=== PATIENT | male | born 1950 | race American Indian/Alaskan Native ===

== ENCOUNTER 2017-02-22 09:23 | Emergency (ER) | payer SELFPAY ==
--- NOTE | 2017-02-22 12:13 | Emergency Department Report ---
HPI - General Chief Complaint: Upper Respiratory Infection Time Seen by Provider: 02/22/17 12:13 - HPI HPI: Patient reports nonproductive cough for 3-4 days. He states that he started about 2 weeks ago when he started having nasal congestion and sinus pressure. He said he is now coughing and has headache at 8-10 frontally. Denies nausea or vomiting. Denies any dizziness. Denies any fever or chills. Denies any shortness of breath or chest pain. 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 went in and patched it up." - Family History Family history: hypertension (Single) - Social History Smoking Status: Never Smoker Substance Use Type: Alcohol (occasional) - Medications Home Medications: Home Medications Medication Instructions Recorded Confirmed Last Taken Type Indomethacin 50 mg PO Q8H #60 capsule 05/24/13 09/06/13 Unknown Rx predniSONE [Deltasone] 50 mg PO QDAY #3 tab 05/24/13 09/06/13 Unknown Rx Amoxicillin [Amoxicillin TAB] 875 mg PO TID 7 Days 09/06/13 Unknown Rx Dextromethorphan Polistirex 5 ml PO BID PRN 10 Days 09/06/13 Unknown Rx [Delsym] HYDROcodone/APAP 5-325 [Savage 1 each PO Q8HR PRN #10 tablet 09/06/13 Unknown Rx 5-325 mg TAB] Ciprofloxacin HCl [Ciprofloxacin 500 mg PO BID #28 tablet 02/10/14 Unknown Rx TAB] HYDROcodone/APAP 5-325 [Savage 1 - 2 each PO Q4-6H PRN #20 tablet 02/10/14 Unknown Rx 5/325] Ibuprofen [Motrin 800 MG tab] 800 mg PO Q8H PRN #20 tablet 02/10/14 Unknown Rx Amoxicillin/K Clav Tab [Augmentin 1 tab PO Q12HR #20 tab 02/22/17 Unknown Rx 875 mg] Cetirizine HCl [ZyrTEC] 10 mg PO QDAY #14 capsule 02/22/17 Unknown Rx Fluticasone [Flonase] 1 spray NS QDAY #1 bottle 02/22/17 Unknown Rx guaiFENesin/CODEINE [Robitussin AC] 10 ml PO Q12H PRN #100 oral.liqd 02/22/17 Unknown Rx ED Review of Systems ROS: Stated complaint: COUGH/HEADACHE Other details as noted in HPI Comment: All other systems reviewed and negative Constitutional: no symptoms reported ENT: congestion, other (sinus pain and PND). denies: ear pain, throat pain Respiratory: cough. denies: orthopnea, shortness of breath, SOB with exertion, SOB at rest, stridor, wheezing Cardiovascular: denies: chest pain, palpitations, dyspnea on exertion, edema, syncope Gastrointestinal: denies: abdominal pain, nausea, vomiting, diarrhea, constipation Musculoskeletal: denies: back pain, joint swelling, arthralgia, myalgia Skin: denies: rash Neurological: headache. denies: weakness, numbness, paresthesias, confusion, abnormal gait, vertigo Physical Exam - Physical Exam Vital Signs: Vital Signs 02/22/17 09:32 Temperature 97.7 F Pulse Rate 71 Respiratory 16 Rate Blood Pressure 154/84 O2 Sat by Pulse 100 Oximetry General: This is a 66-year-old male well-nourished well-developed in no acute distress. Physical Exam: Head: Normocephalic, atraumatic, no abrasion, no bruising and no contusion. Eyes: Biateral pupils equal and reactive to light, bilateral EOM intact.. Bilateral conjunctival and sclera without injection, normal accommodation. Ears: Bilateral EAC without any redness drainage or swelling, Rajat TM congested without erythema. bilateral tragus is normal and nontender. No auricular abnormality. No Mastoid bones tenderness. Nose: Moist, erythema and congested with clear drainage. Frontal sinus TTP Mouth: No pharyngeal exudate or erythema. Uvula is midline and oral airways patent. Moist and tongue is normal. Neck: Supple, Negative Cervical adenopathy, full range of motion and no C-spine tenderness. No swelling or tracheal deviation Cardiovascular: S1, S2. Regular rate and rhythm. No murmur. Capillary refill is less then 3 seconds. Lungs: Clear to auscultate bilaterally. No rhonchi, wheezes or rales. No chest wall tenderness. Dry cough MSK: Strength 5/5 in all extremities. No joint deformity or crepitus. Normal inspection. Full range of motion to all extremities Extremities: No clubbing, cyanosis or edema. +2 pulses. No neurovascular compromise Skin: Clean, dry and intact. No rash or lesions. Psych: Normal mood and behavior. ED Course Vital Signs 02/22/17 09:32 Temperature 97.7 F Pulse Rate 71 Respiratory 16 Rate Blood Pressure 154/84 O2 Sat by Pulse 100 Oximetry - Reevaluation(s) Reevaluation #1: 02/22/17 14:30 Patient stable throughout ED stay ED Medical Decision Making - Medical Decision Making ED course: Assessment/plan Patient here report that he's been having in cough and and headaches for 3-4 days but prior to that he was having nasal congestion. Denies any fever or chills. Patient had elevated at 10. Patient is neurologically intact. Physical findings for acute bacterial sinusitis, headache and cough. Diagnosis and treatment plan explained to patient he voiced understanding. Patient does not have access to primary care sore for him to [facility]. She discharged home in stable condition with prescription for Augmentin, Flonase and Zyrtec. Critical care attestation.: If time is entered above; I have spent that time in minutes in the direct care of this critically ill patient, excluding procedure time. ED Disposition Clinical Impression: Cough, Acute bacterial rhinosinusitis Acute headache Qualifiers: Headache type: unspecified Intractability: not intractable Qualified Code(s): R51 - Headache Disposition: DC-01 TO HOME OR SELFCARE Is pt being admited?: No Does the pt Need Aspirin: No Condition: Stable Instructions: Acute Bacterial Rhinosinusitis (ED), Acute Cough (ED), Acute Headache (ED) Additional Instructions: Please increase her fluid intake Flush nostrils with saline nasal spray take antibiotic as prescribed F/U with primary care physician as instructed Please do not drive or operate heavy machinery while taking in codeine cough syrup as this medication will cause drowsiness. Prescriptions: Amoxicillin/K Clav Tab [Augmentin 875 mg] 1 tab PO Q12HR #20 tab Cetirizine HCl [ZyrTEC] 10 mg PO QDAY #14 capsule Fluticasone [Flonase] 1 spray NS QDAY #1 bottle guaiFENesin/CODEINE [Robitussin AC] 10 ml PO Q12H PRN #100 oral.liqd PRN Reason: Cough Referrals: PRIMARY CARE, [Primary Care Provider] - 3-[address] [facility] [Outside] - 3-5 Days Forms: Work/School Release Form(ED)
[2017-02-22] MEDS ORDERED: MOTRIN PO ONE (13:28)
[2017-02-22] MEDS ORDERED: XYLOCAINE 1% MPF 5 mL INFILTRATI ONE (13:28)
[2017-02-22] MEDS ORDERED: ROCEPHIN IM STA (13:28)
[2017-02-22 17:53] VITALS: BP 144/80
== END 2017-02-22 14:50 | disposition home or self-care (01) ==
LOC: ED 09:23
DX: J01.90 Acute sinusitis, unspecified (principal); R51 Headache; R05 Cough; M19.90 Unspecified osteoarthritis, unspecified site
CPT/HCPCS: 96372; 99282; J0696

== ENCOUNTER 2017-10-22 08:11 | Emergency (ER) | payer MEDICARE ==
--- NOTE | 2017-10-22 09:53 | XRay Report ---
Right knee 3 views: History: Right knee pain and swelling. Findings: No bony or articular per minute. No fracture dislocation or soft tissue calcification. Impression: Essentially negative right knee.
--- NOTE | 2017-10-22 12:00 | Emergency Department Report ---
HPI - General Chief Complaint: Extremity Injury, Lower Time Seen by Provider: 10/22/17 11:43 - HPI HPI: Pt is a 67-year-old male with no prior medical history who presents to ED complaining of right knee pain and swelling for the past 4 days. Patient states he noticed swelling starting about 4 days ago and thought this would go down but swelling has not. Patient states right knee throbbing, intermittent, worse with movement type out of 10 intensity pain. He denies fall injury or trauma to the knee. 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 went in and patched it up." - Social History Smoking Status: Never Smoker Substance Use Type: Non Opiate Pain - Medications Home Medications: Home Medications Medication Instructions Recorded Confirmed Last Taken Type predniSONE [Deltasone] 50 mg PO QDAY #3 tab 05/24/13 09/06/13 Unknown Rx Amoxicillin [Amoxicillin TAB] 875 mg PO TID 7 Days tablet 09/06/13 Unknown Rx Dextromethorphan Polistirex 5 ml PO BID PRN 10 Days ml 09/06/13 Unknown Rx [Delsym] HYDROcodone/APAP 5-325 [Gibson 1 each PO Q8HR PRN #10 tablet 09/06/13 Unknown Rx 5-325 mg TAB] Ciprofloxacin HCl [Ciprofloxacin 500 mg PO BID #28 tablet 02/10/14 Unknown Rx TAB] HYDROcodone/APAP 5-325 [Gibson 1 - 2 each PO Q4-6H PRN #20 tablet 02/10/14 Unknown Rx 5/325] Ibuprofen [Motrin 800 MG tab] 800 mg PO Q8H PRN #20 tablet 02/10/14 Unknown Rx Amoxicillin/K Clav Tab [Augmentin 1 tab PO Q12HR #20 tab 02/22/17 Unknown Rx 875 mg] Cetirizine HCl [ZyrTEC] 10 mg PO QDAY #14 capsule 02/22/17 Unknown Rx Fluticasone [Flonase] 1 spray NS QDAY #1 bottle 02/22/17 Unknown Rx guaiFENesin/CODEINE [Robitussin AC] 10 ml PO Q12H PRN #100 oral.liqd 02/22/17 Unknown Rx Indomethacin 50 mg PO Q8H #20 capsule 10/22/17 Unknown Rx amLODIPine [Norvasc] 5 mg PO DAILY #20 tab 10/22/17 Unknown Rx ED Review of Systems ROS: Stated complaint: RIGHT KNEE Other details as noted in HPI Constitutional: denies: chills, fever Eyes: denies: eye pain, eye discharge, vision change ENT: denies: ear pain, throat pain Respiratory: denies: cough, shortness of breath, wheezing Cardiovascular: denies: chest pain, palpitations Endocrine: no symptoms reported Gastrointestinal: denies: abdominal pain, nausea, diarrhea Genitourinary: denies: urgency, dysuria Musculoskeletal: denies: back pain, joint swelling, arthralgia Skin: denies: rash, lesions Neurological: denies: headache, weakness, paresthesias Psychiatric: denies: anxiety, depression Hematological/Lymphatic: denies: easy bleeding, easy bruising Physical Exam - Physical Exam Vital Signs: Vital Signs 10/22/17 08:36 Temperature 98.5 F Pulse Rate 57 L Respiratory 18 Rate Blood Pressure 160/72 O2 Sat by Pulse 96 Oximetry Physical Exam: GENERAL: Alert and oriented x3, no apparent distress, Normal Gait, atraumatic. HEAD: Head is normocephalic and a-traumatic. NECK: Supple. Non edematous, No lymphadenopathy or thyromegaly. No C-spine tenderness, full range of motion LUNGS: Symetrical with respiration, No wheezing, no rales or crackles, CTAB. HEART: S1, S2 present, regular rate and rhythm without murmur, no rubs, no gallops. Non tender to palpation BACK: Full range of motion, no spinal tenderness, Tenderness to palpation of the trapezius muscles and latissimus dorsi muscles of the back EXTREMITIES/MUSCULOSKELETAL: No cyanosis, clubbing, rash, lesions or edema. Full ROM bilaterally. UE/LE Pulses 2+ bilaterally. LE and UE 5+ strength bilaterally, knee moderately swollen, nonpitting, mildly tender to palpation anteriorly, warm, normal tone, she unable to flex and extend knee. NEUROLOGIC: The patient is cooperative with no focal neurologic deficits. SKIN: Warm and dry, No lesions, No ulceration or induration present. ED Course Vital Signs 10/22/17 08:36 Temperature 98.5 F Pulse Rate 57 L Respiratory 18 Rate Blood Pressure 160/72 O2 Sat by Pulse 96 Oximetry ED Medical Decision Making - Radiology Data Radiology results: report reviewed, image reviewed Ordering Physician: ADDIS COONEY MD Date of Service: 10/22/17 Procedure(s): XR knee 3V RT Accession Number(s): [id number] cc: ADDIS COONEY MD Fluoro Time In Minutes: Right knee 3 views: History: Right knee pain and swelling. Findings: No bony or articular per minute. No fracture dislocation or soft tissue calcification. Impression: Essentially negative right knee. Transcribed By: PTP Dictated By: ROSA ACE MD Electronically Authenticated By: ROSA ACE MD Signed Date/Time: 10/22/17 1308 - Medical Decision Making 67-year-old male presents to ED with right knee arthritis pain ED course: Patient received naproxen in ED. Vital signs are normal patient is in no acute distress. Discussed Leonardo wrap of the knee, and ice compressions 3 times a day. Discussed elevation and proper rest of the knee. Discussed with patient follow-up with primary care physician. Discussed the patient and take medications as prescribed. Patient has no neurological deficit. Patient is alert and oriented 3 and understands all instructions given. Discussed drowsiness effect of Flexeril makes her drowsy and not to operate machinery while taking flexeril. Prior to discharge patient's blood pressure reading was elevated. I discussed the patient and he is to be managed by primary care physician which I give him a referral for. I gave patient had a week's worth of blood pressure medicine to keep blood pressure control. I discussed the patient since he has no history of hypertension to follow up her primary care to be managed. He denied any symptoms such as chest pain, headaches, blurry vision, shortness of breath. Critical care attestation.: If time is entered above; I have spent that time in minutes in the direct care of this critically ill patient, excluding procedure time. ED Disposition Clinical Impression: Arthritis of knee, right Right knee pain Qualifiers: Chronicity: chronic Qualified Code(s): M25.561 - Pain in right knee Disposition: DC-01 TO HOME OR SELFCARE Is pt being admited?: No Does the pt Need Aspirin: No Condition: Stable Instructions: Knee Pain (ED), Arthralgia (ED), Knee Exercises (GEN) Additional Instructions: Make sure to follow up with the primary care physician as discussed. Take all your medications as you've been prescribed. If you have any worsening symptoms or develop new symptoms please return to ED immediately. Prescriptions: amLODIPine [Norvasc] 5 mg PO DAILY #20 tab Indomethacin 50 mg PO Q8H #20 capsule Referrals: PRIMARY CARE, [Primary Care Provider] - 3-5 Days ROGELIO LEONARDO MD [Staff Physician] - 3-5 Days EL STEWART MD [Referring] - 3-5 Days [facility] [Outside] - 3-5 Days [facility] [Outside] - 3-5 Days [facility] [Outside] - 3-5 Days Forms: Work/School Release Form(ED) Time of Disposition: 12:06
[2017-10-22 12:38] VITALS: BP 207/104
[2017-10-22] MEDS ORDERED: NAPROSYN PO ONE (13:00)
== END 2017-10-22 12:49 | disposition home or self-care (01) ==
LOC: ED 08:11
DX: M25.561 Pain in right knee (principal); M17.11 Unilateral primary osteoarthritis, right knee
CPT/HCPCS: 99283

== ENCOUNTER 2018-03-10 15:55 | Emergency (ER) | payer MEDICARE ==
[2018-03-10 16:24] VITALS: BP 133/80
--- NOTE | 2018-03-10 18:06 | XRay Report ---
FINAL REPORT PROCEDURE: XR CHEST ROUTINE 2V TECHNIQUE: PA and lateral chest radiographs were obtained. CPT 95576 HISTORY: COUGH COMPARISON: No prior studies are available for comparison. FINDINGS: Heart: Normal. Mediastinum/Vessels: Normal. Lungs/Pleural space: No infiltrate, effusion, or pneumothorax. Bony thorax: No acute osseous abnormality. Other: IMPRESSION: No pulmonary infiltrates are identified.
[2018-03-10] MEDS ORDERED: TRIMOX PO ONE (18:40)
[2018-03-10] MEDS ORDERED: DELTASONE PO ONE (18:40)
[2018-03-10] MEDS ORDERED: TESSALON PERLES PO ONE (18:41)
--- NOTE | 2018-03-10 18:45 | Emergency Department Report ---
Minor Respiratory - HPI Chief Complaint: Upper Respiratory Infection Stated Complaint: COUGH Time Seen by Provider: 03/10/18 18:38 Duration: 5 Days Pain Location: Facial, Throat, Chest Severity: mild Minor Respiratory: Yes Sore Throat, Yes Able to Tolerate Fluids, Yes Cough, No Rhinorrhea, No Ear Pain, No Sick Contacts, No Hemoptysis, No Chest Pain, No Shortness of Breath, No Fever ED Review of Systems ROS: Stated complaint: COUGH Other details as noted in HPI Comment: Unobtainable due to pts medical conditions Constitutional: denies: chills Eyes: denies: eye pain ENT: throat pain. denies: ear pain Respiratory: cough. denies: orthopnea Cardiovascular: denies: chest pain, palpitations, dyspnea on exertion Endocrine: denies: excessive sweating, flushing, intolerance to cold Gastrointestinal: denies: abdominal pain, nausea Genitourinary: denies: urgency, dysuria Musculoskeletal: denies: back pain Skin: denies: rash, lesions Neurological: denies: headache, weakness Psychiatric: denies: anxiety, depression Hematological/Lymphatic: denies: easy bleeding ED Past Medical Hx - Past Medical History Hx Arthritis: Yes Additional medical history: GOUT - Surgical History Past Surgical History?: Yes Additional Surgical History: kidney surgery " 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 went in and patched it up." - Family History Family history: no significant - Social History Smoking Status: Never Smoker Substance Use Type: None - Medications Home Medications: Home Medications Medication Instructions Recorded Confirmed Last Taken Type Amoxicillin [Trimox CAP] 500 mg PO BID #20 capsule 03/10/18 Unknown Rx Benzonatate [Tessalon Perles] 100 mg PO Q8HR PRN #20 capsule 03/10/18 Unknown Rx Fluticasone [Flonase] 1 spray NS QDAY #1 bottle 03/10/18 Unknown Rx predniSONE [Deltasone] 50 mg PO QDAY #5 tab 03/10/18 Unknown Rx Minor Respiratory Exam - Exam General: Vital signs noted. No distress. Alert and acting appropriately. HEENT: Yes Pharyngeal Erythema, Yes Moist Mucous Membranes, Yes Frontal Tenderness, Yes Maxillary Tenderness, No Pharyngeal Exudates, No Rhinorrhea, No Conjuctival Injection Ear: Neither TM Bulge, Neither TM Erythema, Neither EAC Pain, Neither EAC Discharge Neck: Yes Supple, No Adenopathy Lungs: Yes Good Air Exchange, Yes Cough, No Wheezes, No Ronchi, No Stridor, No Labored Respirations, No Retractions, No Use of Accessory Muscles Heart: Yes Regular, No Murmur Abdomen: Yes Normal Bowel Sounds, No Tenderness, No Peritoneal Signs Skin: No Rash, No Edema Neurologic: Alert and oriented, no deficits. Musculoskeletal: Unremarkable. ED Course Vital Signs 03/10/18 16:21 Temperature 98.7 F Pulse Rate 78 Respiratory 20 Rate Blood Pressure 133/80 O2 Sat by Pulse 97 Oximetry ED Medical Decision Making - Radiology Data Radiology results: report reviewed, image reviewed - Medical Decision Making NO FEVER 1 MONTH HX TICKLE IN THROAT POS SINUS PRESSURE MAX AND FACIAL POST NASAL DRIP NON TOXIC TAKING PO AMBULATORY - Differential Diagnosis URTI Critical care attestation.: If time is entered above; I have spent that time in minutes in the direct care of this critically ill patient, excluding procedure time. ED Disposition Clinical Impression: Sinusitis, Cough Disposition: DC-01 TO HOME OR SELFCARE Is pt being admited?: No Does the pt Need Aspirin: No Condition: Stable Instructions: Sinusitis (ED) Additional Instructions: HYDRATE DIET TOLERATED MEDS ORDERED UNTIL GONE FOLLOW UP WITH PCP IF PERSISTS XRAY NORMAL THIS EVENING Referrals: PRIMARY MD CARLOZ [Primary Care Provider] - 3-5 Days JUDE GRANT MD [Staff Physician] - 3-5 Days Time of Disposition: 18:42
== END 2018-03-10 18:56 | disposition home or self-care (01) ==
LOC: ED 15:55
DX: J32.9 Chronic sinusitis, unspecified (principal); M19.90 Unspecified osteoarthritis, unspecified site
CPT/HCPCS: 71046; 99283; J7512

== ENCOUNTER 2019-03-15 11:47 | Emergency (ER) | payer MEDICARE ==
--- NOTE | 2019-03-15 12:10 | Emergency Department Report ---
Blank Doc - Documentation Documentation: 68-year-old male that presents with left great toe pain and swelling with hx of Gout. This initial assessment/diagnostic orders/clinical plan/treatment(s) is/are subject to change based on patient's health status, clinical progression and re- assessment by fellow clinical providers in the ED. Further treatment and workup at subsequent clinical providers discretion. Patient/guardians urged not to elope from the ED as their condition may be serious if not clinically assessed and managed. Initial orders include: 1- Patient sent to [facility] for further evaluation and treatment
[2019-03-15 12:15] VITALS: BP 157/91
[2019-03-15] MEDS ORDERED: HYDROcodone/ACETAMINOPHEN 5-325 MG TAB PO ONE (13:18)
[2019-03-15] MEDS ORDERED: IBUPROFEN 800 MG TAB PO ONE (13:18)
--- NOTE | 2019-03-15 13:18 | Emergency Department Report ---
ED Lower Extremity HPI - General Chief Complaint: Extremity Injury, Lower Stated Complaint: FOOT SWOLLEN/PAIN Time Seen by Provider: 03/15/19 12:09 Source: patient Mode of arrival: Ambulatory Limitations: No Limitations - History of Present Illness Initial Comments: Mr. Campos is a very pleasant 68-year-old male with history of gout who has pain at the left big toe. No recent trauma. + swelling. Recurrent symptoms in the area of gout episodes. Mild pain. MD Complaint: other (left big toe pain) -: Gradual, days(s) (2) Injury: Foot: Left Severity: mild, moderate Severity scale (0 -10): 6 Worsens With: weight bearing Context: other (history of gout) Associated Symptoms: swelling - Related Data Previous Rx's Medication Instructions Recorded Last Taken Type Amoxicillin [Trimox CAP] 500 mg PO BID #20 capsule 03/10/18 Unknown Rx Benzonatate [Tessalon Perles] 100 mg PO Q8HR PRN #20 capsule 03/10/18 Unknown Rx Fluticasone [Flonase] 1 spray NS QDAY #1 bottle 03/10/18 Unknown Rx predniSONE [Deltasone] 50 mg PO QDAY #5 tab 03/10/18 Unknown Rx Colchicine 0.6 mg PO Q3H #3 capsule 03/15/19 Unknown Rx HYDROcodone/APAP 5-325 [Harrells 1 each PO Q6HR PRN #10 tablet 03/15/19 Unknown Rx 5/325] Prednisone [predniSONE 10 mg 10 mg PO .TAPER #1 tab.ds.pk 03/15/19 Unknown Rx (6-Day Pack, 21 Tabs)] Allergies Allergy/AdvReac Type Severity Reaction Status Date / Time No Known Allergies Allergy Unverified 05/24/13 13:53 ED Review of Systems ROS: Stated complaint: FOOT SWOLLEN/PAIN Other details as noted in HPI Constitutional: denies: fever, malaise Respiratory: denies: shortness of breath Cardiovascular: denies: chest pain Gastrointestinal: denies: abdominal pain, nausea, vomiting Musculoskeletal: joint swelling, arthralgia Skin: denies: rash, lesions ED Past Medical Hx - Past Medical History Previous Medical History?: Yes Hx Arthritis: Yes Additional medical history: GOUT - Surgical History Past Surgical History?: Yes Additional Surgical History: kidney surgery " 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 went in and patched it up." - Social History Smoking Status: Never Smoker Substance Use Type: None - Medications Home Medications: Home Medications Medication Instructions Recorded Confirmed Last Taken Type Amoxicillin [Trimox CAP] 500 mg PO BID #20 capsule 03/10/18 Unknown Rx Benzonatate [Tessalon Perles] 100 mg PO Q8HR PRN #20 capsule 03/10/18 Unknown Rx Fluticasone [Flonase] 1 spray NS QDAY #1 bottle 03/10/18 Unknown Rx predniSONE [Deltasone] 50 mg PO QDAY #5 tab 03/10/18 Unknown Rx Colchicine 0.6 mg PO Q3H #3 capsule 03/15/19 Unknown Rx HYDROcodone/APAP 5-325 [Harrells 1 each PO Q6HR PRN #10 tablet 03/15/19 Unknown Rx 5/325] Prednisone [predniSONE 10 mg 10 mg PO .TAPER #1 tab.ds.pk 03/15/19 Unknown Rx (6-Day Pack, 21 Tabs)] ED Physical Exam - General Limitations: No Limitations General appearance: alert, in no apparent distress - Head Head exam: Present: atraumatic, normocephalic - Eye Eye exam: Present: normal appearance - Respiratory Respiratory exam: Absent: respiratory distress - Extremities Exam Extremities exam: Present: other (left MTP: Redness swelling tenderness foot and ankle exam normal otherwise) ED Course Vital Signs 03/15/19 11:54 Temperature 97.8 F Pulse Rate 83 Respiratory 17 Rate Blood Pressure 157/91 O2 Sat by Pulse 96 Oximetry ED Lower Extremity MDM - Medical Decision Making 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 ED Disposition Clinical Impression: Gout attack, Gout of left foot Disposition: DC-01 TO HOME OR SELFCARE Is pt being admited?: No Does the pt Need Aspirin: No Condition: Stable Instructions: Acute Gouty Arthritis (ED) Prescriptions: Colchicine 0.6 mg PO Q3H #3 capsule HYDROcodone/APAP 5-325 [Harrells 5/325] 1 each PO Q6HR PRN #10 tablet PRN Reason: Pain Prednisone [predniSONE 10 mg (6-Day Pack, 21 Tabs)] 10 mg PO .TAPER #1 tab.ds.pk Referrals: GRACIELA OCHOA MD [Staff Physician] - 3-5 Days Forms: Work/School Release Form(ED)
== END 2019-03-15 13:57 | disposition home or self-care (01) ==
LOC: ED 11:47
DX: M10.072 Idiopathic gout, left ankle and foot (principal); M19.90 Unspecified osteoarthritis, unspecified site; Z98.890 Other specified postprocedural states; Z79.899 Other long term (current) drug therapy
CPT/HCPCS: 99282

== ENCOUNTER 2020-01-04 13:13 | Emergency (ER) | payer MEDICARE ==
[2020-01-04 13:47] VITALS: BP 152/80
--- NOTE | 2020-01-04 17:00 | Emergency Department Report ---
ED Back Pain/Injury HPI - General Chief Complaint: Back Pain/Injury Stated Complaint: BACK PAIN Time Seen by Provider: 01/04/20 16:01 Source: patient Limitations: No Limitations - History of Present Illness Initial Comments: 69-year-old -[place] male presents to the emergency room for 2-day history of back pain. Patient states that he only recalled climbing up a ladder . Patient denies any falls or injuries. Patient denies any urinary urgency no hematuria. Patient denies any dizziness no urinary incontinence or bowel incontinence. Patient reports he taken Aleve 2 pills yesterday and 2 pills a day before. Not taken any pain medication today. MD Complaint: back pain Onset/Timin -: days(s) Similar Symptoms Previously: No Severity scale (0 -10): 10 Quality: stabbing Consistency: intermittent Improves With: none Worsens With: none Context: unknown Associated Symptoms: denies other symptoms - Related Data Previous Rx's Medication Instructions Recorded Last Taken Type Amoxicillin [Trimox CAP] 500 mg PO BID #20 capsule 03/10/18 Unknown Rx Benzonatate [Tessalon Perles] 100 mg PO Q8HR PRN #20 capsule 03/10/18 Unknown Rx Fluticasone [Flonase] 1 spray NS QDAY #1 bottle 03/10/18 Unknown Rx predniSONE [Deltasone] 50 mg PO QDAY #5 tab 03/10/18 Unknown Rx Colchicine 0.6 mg PO Q3H #3 capsule 03/15/19 Unknown Rx HYDROcodone/APAP 5-325 [[place] 1 each PO Q6HR PRN #10 tablet 03/15/19 Unknown Rx 5/325] Prednisone [predniSONE 10 mg 10 mg PO .TAPER #1 tab.ds.pk 03/15/19 Unknown Rx (6-Day Pack, 21 Tabs)] Ciprofloxacin HCl [Ciprofloxacin 500 mg PO Q12HR 5 Days #10 tab 01/04/20 Unknown Rx TAB] Allergies Allergy/AdvReac Type Severity Reaction Status Date / Time No Known Allergies Allergy Unverified 05/24/13 13:53 ED Review of Systems ROS: Stated complaint: BACK PAIN Other details as noted in HPI Comment: All other systems reviewed and negative ED Past Medical Hx - Past Medical History Hx Arthritis: Yes Additional medical history: GOUT - Surgical History Additional Surgical History: kidney surgery " 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 went in and patched it up." - Social History Smoking Status: Never Smoker Substance Use Type: None - Medications Home Medications: Home Medications Medication Instructions Recorded Confirmed Last Taken Type Amoxicillin [Trimox CAP] 500 mg PO BID #20 capsule 03/10/18 Unknown Rx Benzonatate [Tessalon Perles] 100 mg PO Q8HR PRN #20 capsule 03/10/18 Unknown Rx Fluticasone [Flonase] 1 spray NS QDAY #1 bottle 03/10/18 Unknown Rx predniSONE [Deltasone] 50 mg PO QDAY #5 tab 03/10/18 Unknown Rx Colchicine 0.6 mg PO Q3H #3 capsule 03/15/19 Unknown Rx HYDROcodone/APAP 5-325 [[place] 1 each PO Q6HR PRN #10 tablet 03/15/19 Unknown Rx 5/325] Prednisone [predniSONE 10 mg 10 mg PO .TAPER #1 tab.ds.pk 03/15/19 Unknown Rx (6-Day Pack, 21 Tabs)] Ciprofloxacin HCl [Ciprofloxacin 500 mg PO Q12HR 5 Days #10 tab 01/04/20 Unknown Rx TAB] ED Physical Exam - General Limitations: No Limitations General appearance: alert, in no apparent distress - Head Head exam: Present: atraumatic, normocephalic - Eye Eye exam: Present: normal appearance - ENT ENT exam: Present: mucous membranes moist - Back Exam Back exam: Present: full ROM, muscle spasm. Absent: tenderness, paraspinal tenderness, vertebral tenderness - Expanded Back Exam Expanded Back exam: Sciatic Notch Tenderness: Right, Positive Straight Leg Raise: Left, Negative Straight Leg Raising: Left - Neurological Exam Neurological exam: Present: alert, oriented X3, normal gait - Psychiatric Psychiatric exam: Present: normal affect, normal mood - Skin Skin exam: Present: warm, dry, intact, normal color. Absent: rash ED Course Vital Signs 01/04/20 13:43 Temperature 98.3 F Pulse Rate 64 Respiratory 18 Rate Blood Pressure 152/80 [Right] O2 Sat by Pulse 98 Oximetry ED Medical Decision Making - Lab Data Laboratory Tests 01/04/20 Unknown Urine Color Yellow Urine Turbidity Cloudy Urine pH 8.0 H Ur Specific [place] 1.014 Urine Protein <15 mg/dl Urine Glucose (UA) Neg Urine Ketones Neg Urine Blood Neg Urine Nitrite Pos Urine Bilirubin Neg Urine Urobilinogen < 2.0 Ur Leukocyte Esterase Mod Urine WBC (Auto) 27.0 H Urine RBC (Auto) 1.0 U Epithel Cells (Auto) 1.0 Urine Bacteria (Auto) 1+ Urine Mucus Few Urine Yeast (Budding) 1+ - Medical Decision Making 69-year-old -[place] male presents to the emergency room for 2-day history of back pain. Patient states that he only recalled climbing up a ladder. Patient denies any falls or injuries. Patient denies any urinary urgency no hematuria. Patient denies any dizziness no urinary incontinence or bowel incontinence. Patient reports he taken Aleve 2 pills yesterday and 2 pills a day before. Not taken any pain medication today. UA sent out. Most likely muscle strain. Does not have any vertebral tenderness full range of motion. Critical care attestation.: If time is entered above; I have spent that time in minutes in the direct care of this critically ill patient, excluding procedure time. ED Disposition Clinical Impression: UTI (urinary tract infection) Qualifiers: Urinary tract infection type: site unspecified Hematuria presence: without hematuria Qualified Code(s): N39.0 - Urinary tract infection, site not specified Disposition: DC- TO HOME OR SELFCARE Is pt being admited?: No Does the pt Need Aspirin: No Condition: Stable Instructions: Urinary Tract Infection in Men (ED) Additional Instructions: Please complete your antibiotics as prescribed. Tylenol for pain as needed. Follow-up with a urologist. Prescriptions: Ciprofloxacin HCl [Ciprofloxacin TAB] 500 mg PO Q12HR 5 Days #10 tab Referrals: JOSE CARTY MD [Primary Care Provider] - 3-5 Days RONALD BELLA MD [Staff Physician] - 3-5 Days
[2020-01-04 17:13] LABS: Bacteria,Urine 1+ /HPF (Negative); Bilirubin,Urine NEG (Negative); Blood,Urine NEG (Negative); Color,Urine Yellow (Yellow); Mucus,Urine FEW /HPF; Protein,Urine <15 mg/dL mg/dL (Negative); Urobilinogen,Urine < 2.0 mg/dL (<2.0)
== END 2020-01-04 17:53 | disposition home or self-care (01) ==
LOC: ED 13:13
DX: N39.0 Urinary tract infection, site not specified (principal); M19.90 Unspecified osteoarthritis, unspecified site; Z98.890 Other specified postprocedural states; Z79.2 Long term (current) use of antibiotics; Z79.899 Other long term (current) drug therapy
CPT/HCPCS: 81001; 87086; 99283

== ENCOUNTER 2020-09-08 13:48 | Emergency (ER) | payer MEDICARE ==
--- NOTE | 2020-09-08 15:39 | Event Note ---
ED Screening Note Date of service: 09/08/20 Time: 15:38 ED Screening Note: 70-year-old male patient with history of pyelonephritis and nephrolithiasis presents to emergency department with complaints of nontraumatic right lower back/right flank pain starting 2 days ago. Patient states pain is reminiscent of prior kidney infection. States he was treated as an outpatient for pyelonephritis less than 1 year ago. He has never required lithotripsy for his kidney stones. Pain is typically on the right side. No fever, nausea, or vomiting. General: Awake, appropriately interactive, no acute distress. Neck: Supple. Full range of motion intact. Cardiovascular: Normal peripheral perfusion. Pulmonary: No respiratory distress. Patient is speaking normally without use of accessory muscles. Back: Right CVA tenderness. Skin: No apparent rashes or lesions. Neurological: No facial asymmetry. Speech is clear. Follows commands. Patient is alert and oriented. Musculoskeletal: Moves all four extremities spontaneously with normal range of motion. Psych: Cooperative. Appropriate mood and affect. This initial assessment/diagnostic orders/clinical plan/treatment(s) is/are subject to change based on patients health status, clinical progression and re- assessment by fellow clinical providers in the ED. Further treatment and workup at subsequent clinical providers discretion. Patient/guardian urged not to elope from the ED as their condition may be serious if not clinically assessed and managed.
[2020-09-08 15:56] LABS: Basophils % (Auto) 0.7 % (0.0-1.8); Eosinophils # (Auto) 0.1 K/mm3 (0.0-0.4); Eosinophils % (Auto) 1.3 % (0.0-4.3); Hematocrit 41.7 % (35.5-45.6); Hemoglobin 14.1 gm/dl (11.8-15.2); Lymphocytes # (Auto) 2.5 K/mm3 (1.2-5.4); Lymphocytes % (Auto) 33.9 % (13.4-35.0); Mean Corpuscular HGB Conc 34 % (32-34); Mean Corpuscular Volume 96 fl (84-94); Monocytes # (Auto) 0.5 K/mm3 (0.0-0.8); Monocytes % (Auto) 6.1 % (0.0-7.3); Platelet Count 415 K/mm3 (140-440); Red Blood Count 4.37 M/mm3 (3.65-5.03); Red Cell Distribution Width 13.3 % (13.2-15.2)
[2020-09-08 16:20] LABS: Alanine Aminotransferase 13 units/L (7-56); Albumin 3.5 g/dL (3.9-5); BUN/Creatinine Ratio 6; Blood Urea Nitrogen 6 mg/dL (9-20); Calcium 9.1 mg/dL (8.4-10.2); Hemolysis Index 11
--- NOTE | 2020-09-08 16:26 | Cat Scan Report ---
CT ABDOMEN AND PELVIS WITHOUT CONTRAST INDICATION / CLINICAL INFORMATION: right CVA tenderness/flank pain; hx pyelo stones. TECHNIQUE: Axial CT images were obtained through the abdomen and pelvis without IV contrast. All CT scans at [facility] are performed using CT dose reduction for ALARA by means of automated exposure control. COMPARISON: None available. FINDINGS: LOWER CHEST: Mild cardiomegaly. Visualized lung bases are clear. LIVER: No significant abnormality. GALLBLADDER: Cholelithiasis. BILE DUCTS: No significant abnormality. PANCREAS: No significant abnormality. SPLEEN: No significant abnormality. ADRENALS: No significant abnormality. RIGHT KIDNEY and URETER: There is marked right hydronephrosis with dilation of the renal pelvis and c alyces. There are 2 adjacent nonobstructive stones in the right lower pole, each measuring up to appr oximately 6 mm. There is moderate diffuse right renal cortical atrophy. LEFT KIDNEY and URETER: No significant abnormality. STOMACH and SMALL BOWEL: No significant abnormality. COLON: No significant abnormality. APPENDIX: No significant abnormality. PERITONEUM: No free fluid. No free air. No fluid collection. LYMPH NODES: No significant adenopathy. AORTA and ARTERIES: No significant abnormality. IVC and VEINS: No significant abnormality. URINARY BLADDER: Markedly distended to the level of the umbilicus. REPRODUCTIVE ORGANS: No significant abnormality. ADDITIONAL FINDINGS: None. SKELETAL SYSTEM: No significant abnormality. IMPRESSION: 1. Findings most compatible with right ureteropelvic junction obstruction, with marked right hydronep hrosis and associated cortical atrophy. 2. Nonobstructive intrarenal stones in the right lower pole. 3. Markedly distended urinary bladder. 4. Cholelithiasis. Signer Name: Yasmeen Carr MD Signed: 09/08/2020 4:21 PM Workstation Name: [id number]
[2020-09-08] MEDS ORDERED: MORPHINE 4 MG/1 ML INJ IV ONE (18:02)
[2020-09-08] MEDS ORDERED: ONDANSETRON 4 MG/2 ML INJ IV ONE (18:02)
--- NOTE | 2020-09-08 18:03 | Emergency Department Report ---
ED General Adult HPI - General Chief complaint: Abdominal Pain Stated complaint: BACK PAIN Time Seen by Provider: 09/08/20 17:16 Source: patient Mode of arrival: Ambulatory Limitations: No Limitations - History of Present Illness Initial comments: 70-year-old male patient with history of pyelonephritis and nephrolithiasis presents to emergency department with complaints of nontraumatic right lower back/right flank pain starting 2 days ago. Patient states pain is reminiscent of prior kidney infection. States he was treated as an outpatient for pyel onephritis less than 1 year ago. He has never required lithotripsy for his kidney stones. Pain is typically on the right side. No fever, nausea, or vomiting. Patient does admit to urinary frequency, but denies hematuria or decreased urination. He also reports history of kidney surgery when he was a child-he states" my kidney was in the front and they had to move it to my back". He denies any kidney disease or recurrent complications -: Gradual - Related Data Previous Rx's Medication Instructions Recorded Last Taken Type Amoxicillin [Trimox CAP] 500 mg PO BID #20 capsule 03/10/18 Unknown Rx Benzonatate [Tessalon Perles] 100 mg PO Q8HR PRN #20 capsule 03/10/18 Unknown Rx Fluticasone [Flonase] 1 spray NS QDAY #1 bottle 03/10/18 Unknown Rx predniSONE [Deltasone] 50 mg PO QDAY #5 tab 03/10/18 Unknown Rx Colchicine 0.6 mg PO Q3H #3 capsule 03/15/19 Unknown Rx HYDROcodone/APAP 5-325 [[place] 1 each PO Q6HR PRN #10 tablet 03/15/19 Unknown Rx 5/325] Prednisone [predniSONE 10 mg 10 mg PO .TAPER #1 tab.ds.pk 03/15/19 Unknown Rx (6-Day Pack, 21 Tabs)] Ciprofloxacin HCl [Ciprofloxacin 500 mg PO Q12HR 5 Days #10 tab 01/04/20 Unknown Rx TAB] Acetaminophen/Codeine [Tylenol 1 tab PO Q8H PRN #8 tab 09/08/20 Unknown Rx /Codeine # 3 tab] Naproxen 500 mg PO BID PRN #14 tablet 09/08/20 Unknown Rx Tamsulosin [Flomax] 0.4 mg PO QDAY 5 Days #5 cap 09/08/20 Unknown Rx Allergies Allergy/AdvReac Type Severity Reaction Status Date / Time No Known Allergies Allergy Unverified 05/24/13 13:53 ED Review of Systems ROS: Stated complaint: BACK PAIN Other details as noted in HPI Constitutional: denies: chills, fever, malaise Respiratory: denies: cough, shortness of breath Cardiovascular: denies: chest pain Gastrointestinal: abdominal pain, nausea. denies: vomiting, diarrhea, constipation, hematemesis, melena Genitourinary: dysuria, frequency. 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 went in and patched it up." - Social History Smoking Status: Never Smoker Substance Use Type: None - Medications Home Medications: Home Medications Medication Instructions Recorded Confirmed Last Taken Type Amoxicillin [Trimox CAP] 500 mg PO BID #20 capsule 03/10/18 Unknown Rx Benzonatate [Tessalon Perles] 100 mg PO Q8HR PRN #20 capsule 03/10/18 Unknown Rx Fluticasone [Flonase] 1 spray NS QDAY #1 bottle 03/10/18 Unknown Rx predniSONE [Deltasone] 50 mg PO QDAY #5 tab 03/10/18 Unknown Rx Colchicine 0.6 mg PO Q3H #3 capsule 03/15/19 Unknown Rx HYDROcodone/APAP 5-325 [[place] 1 each PO Q6HR PRN #10 tablet 03/15/19 Unknown Rx 5/325] Prednisone [predniSONE 10 mg 10 mg PO .TAPER #1 tab.ds.pk 03/15/19 Unknown Rx (6-Day Pack, 21 Tabs)] Ciprofloxacin HCl [Ciprofloxacin 500 mg PO Q12HR 5 Days #10 tab 01/04/20 Unknown Rx TAB] Acetaminophen/Codeine [Tylenol 1 tab PO Q8H PRN #8 tab 09/08/20 Unknown Rx /Codeine # 3 tab] Naproxen 500 mg PO BID PRN #14 tablet 09/08/20 Unknown Rx Tamsulosin [Flomax] 0.4 mg PO QDAY 5 Days #5 cap 09/08/20 Unknown Rx ED Physical Exam - General Limitations: No Limitations General appearance: alert, in no apparent distress - Head Head exam: Present: atraumatic, normocephalic - Eye Eye exam: Present: normal appearance. Absent: scleral icterus - Respiratory Respiratory exam: Present: normal lung sounds bilaterally. Absent: respiratory distress - Cardiovascular Cardiovascular Exam: Present: regular rate, normal rhythm. Absent: systolic murmur, diastolic murmur, rubs, gallop - GI/Abdominal GI/Abdominal exam: Present: soft, tenderness (Mild right-sided in the right upper quadrant), normal bowel sounds. Absent: distended, guarding, rebound, rigid - Extremities Exam Extremities exam: Present: full ROM - Back Exam Back exam: Present: full ROM, CVA tenderness (R). Absent: paraspinal tenderness, vertebral tenderness - Neurological Exam Neurological exam: Present: alert, oriented X3, normal gait - Psychiatric Psychiatric exam: Present: normal affect, normal mood - Skin Skin exam: Present: warm, dry, intact, normal color. Absent: rash ED Course Vital Signs 09/08/20 09/08/20 14:14 20:45 Temperature 97.8 F Pulse Rate 77 68 Respiratory 16 16 Rate Blood Pressure 132/77 Blood Pressure 148/70 [Left] O2 Sat by Pulse 98 100 Oximetry ED Medical Decision Making - Lab Data Result diagrams: 09/08/20 15:46 09/08/20 15:46 Lab Results 09/08/20 09/08/20 09/08/20 Range/Units 15:46 15:46 18:05 WBC 7.4 (4.5-11.0) K/mm3 RBC 4.37 (3.65-5.03) M/mm3 Hgb 14.1 (11.8-15.2) gm/dl Hct 41.7 (35.5-45.6) % MCV 96 H (84-94) fl MCH 32 (28-32) pg MCHC 34 (32-34) % RDW 13.3 (13.2-15.2) % Plt Count 415 (140-440) K/mm3 Lymph % (Auto) 33.9 (13.4-35.0) % [place] % (Auto) 6.1 (0.0-7.3) % Eos % (Auto) 1.3 (0.0-4.3) % Baso % (Auto) 0.7 (0.0-1.8) % Lymph # (Auto) 2.5 (1.2-5.4) K/mm3 [place] # (Auto) 0.5 (0.0-0.8) K/mm3 Eos # (Auto) 0.1 (0.0-0.4) K/mm3 Baso # (Auto) 0.0 (0.0-0.1) K/mm3 Seg Neutrophils % 58.0 (40.0-70.0) % Seg Neutrophils # 4.3 (1.8-7.7) K/mm3 Sodium 135 L (137-145) mmol/L Potassium 4.3 (3.6-5.0) mmol/L Chloride 101.2 (98-107) mmol/L Carbon Dioxide 24 (22-30) mmol/L Anion Gap 14 mmol/L BUN 6 L (9-20) mg/dL Creatinine 1.0 (0.8-1.3) mg/dL Estimated GFR > 60 ml/min BUN/Creatinine Ratio 6 % Glucose 76 (75-100) mg/dL Calcium 9.1 (8.4-10.2) mg/dL Total Bilirubin 0.30 (0.1-1.2) mg/dL AST 18 (5-40) units/L ALT 13 (7-56) units/L Alkaline Phosphatase 154 H (35-129) units/L Total Protein 7.3 (6.3-8.2) g/dL Albumin 3.5 L (3.9-5) g/dL Albumin/Globulin Ratio 0.9 % Lipase (13-60) units/L Urine Color Straw (Yellow) Urine Turbidity Clear (Clear) Urine pH 5.0 (5.0-7.0) Ur Specific [place] 1.005 (1.003-1.030) Urine Protein <15 mg/dl (Negative) mg/dL Urine Glucose (UA) Neg (Negative) mg/dL Urine Ketones Neg (Negative) mg/dL Urine Blood Neg (Negative) Urine Nitrite Neg (Negative) Urine Bilirubin Neg (Negative) Urine Urobilinogen < 2.0 (<2.0) mg/dL Ur Leukocyte Esterase Sm (Negative) Urine WBC (Auto) 5.0 (0.0-6.0) /HPF Urine RBC (Auto) 1.0 (0.0-6.0) /HPF U Epithel Cells (Auto) < 1.0 (0-13.0) /HPF Urine Bacteria (Auto) 2+ (Negative) /HPF Hyaline Casts 1 /LPF Urine Mucus Few /HPF 09/08/20 Range/Units 19:03 WBC (4.5-11.0) K/mm3 RBC (3.65-5.03) M/mm3 Hgb (11.8-15.2) gm/dl Hct (35.5-45.6) % MCV (84-94) fl MCH (28-32) pg MCHC (32-34) % RDW (13.2-15.2) % Plt Count (140-440) K/mm3 Lymph % (Auto) (13.4-35.0) % [place] % (Auto) (0.0-7.3) % Eos % (Auto) (0.0-4.3) % Baso % (Auto) (0.0-1.8) % Lymph # (Auto) (1.2-5.4) K/mm3 [place] # (Auto) (0.0-0.8) K/mm3 Eos # (Auto) (0.0-0.4) K/mm3 Baso # (Auto) (0.0-0.1) K/mm3 Seg Neutrophils % (40.0-70.0) % Seg Neutrophils # (1.8-7.7) K/mm3 Sodium (137-145) mmol/L Potassium (3.6-5.0) mmol/L Chloride (98-107) mmol/L Carbon Dioxide (22-30) mmol/L Anion Gap mmol/L BUN (9-20) mg/dL Creatinine (0.8-1.3) mg/dL Estimated GFR ml/min BUN/Creatinine Ratio % Glucose (75-100) mg/dL Calcium (8.4-10.2) mg/dL Total Bilirubin (0.1-1.2) mg/dL AST (5-40) units/L ALT (7-56) units/L Alkaline Phosphatase (35-129) units/L Total Protein (6.3-8.2) g/dL Albumin (3.9-5) g/dL Albumin/Globulin Ratio % Lipase 20 (13-60) units/L Urine Color (Yellow) Urine Turbidity (Clear) Urine pH (5.0-7.0) Ur Specific [place] (1.003-1.030) Urine Protein (Negative) mg/dL Urine Glucose (UA) (Negative) mg/dL Urine Ketones (Negative) mg/dL Urine Blood (Negative) Urine Nitrite (Negative) Urine Bilirubin (Negative) Urine Urobilinogen (<2.0) mg/dL Ur Leukocyte Esterase (Negative) Urine WBC (Auto) (0.0-6.0) /HPF Urine RBC (Auto) (0.0-6.0) /HPF U Epithel Cells (Auto) (0-13.0) /HPF Urine Bacteria (Auto) (Negative) /HPF Hyaline Casts /LPF Urine Mucus /HPF - Radiology Data Radiology results: report reviewed CT ABDOMEN AND PELVIS WITHOUT CONTRAST INDICATION / CLINICAL INFORMATION: right CVA tenderness/flank pain; hx pyelo stones. TECHNIQUE: Axial CT images were obtained through the abdomen and pelvis without IV contrast. All CT scans at this location are performed using CT dose reduction for ALARA by means of automated exposure control. COMPARISON: None available. FINDINGS: LOWER CHEST: Mild cardiomegaly. Visualized lung bases are clear. LIVER: No significant abnormality. GALLBLADDER: Cholelithiasis. BILE DUCTS: No significant abnormality. PANCREAS: No significant abnormality. SPLEEN: No significant abnormality. ADRENALS: No significant abnormality. RIGHT KIDNEY and URETER: There is marked right hydronephrosis with dilation of the renal pelvis and calyces. There are 2 adjacent nonobstructive stones in the right lower pole, each measuring up to approximately 6 mm. There is moderate diffuse right renal cortical atrophy. LEFT KIDNEY and URETER: No significant abnormality. STOMACH and SMALL BOWEL: No significant abnormality. COLON: No significant abnormality. APPENDIX: No significant abnormality. PERITONEUM: No free fluid. No free air. No fluid collection. LYMPH NODES: No significant adenopathy. AORTA and ARTERIES: No significant abnormality. IVC and VEINS: No significant abnormality. URINARY BLADDER: Markedly distended to the level of the umbilicus. REPRODUCTIVE ORGANS: No significant abnormality. ADDITIONAL FINDINGS: None. SKELETAL SYSTEM: No significant abnormality. IMPRESSION: 1. Findings most compatible with right ureteropelvic junction obstruction, with marked right hydronephrosis and associated cortical atrophy. 2. Nonobstructive intrarenal stones in the right lower pole. 3. Markedly distended urinary bladder. 4. Cholelithiasis. ULTRASOUND ABDOMEN, LIMITED (RIGHT UPPER QUADRANT) INDICATION: Right upper quadrant pain. COMPARISON: CT of the abdomen and pelvis, 09/08/2020 FINDINGS: Pancreas: Visualized portion shows no significant abnormality. Liver: Visualized portions of the liver appear normal. Gallbladder: There is a single 2.3 cm calcified stone in the gallbladder. There is no evidence of wall thickening or pericholecystic fluid. Bile ducts: Common Bile Duct is normal in caliber measuring 4 mm. Free fluid: None. Additional Findings: None. IMPRESSION: 1. Single calcified stone within the gallbladder. No sonographic evidence to suggest cholecystitis. - Medical Decision Making 70-year-old male patient with history of pyelonephritis and nephrolithiasis presents to emergency department with complaints of nontraumatic right lower back/right flank pain starting 2 days ago. Patient states pain is reminiscent of prior kidney infection. States he was treated as an outpatient for pyelonephritis less than 1 year ago. He has never required lithotripsy for his kidney stones. Pain is typically on the right side. No fever, nausea, or vomiting. Patient does admit to urinary frequency, but denies hematuria or decreased urination. He also reports history of kidney surgery when he was a child-he states" my kidney was in the front and they had to move it to my back". He denies any kidney disease or recurrent complications UA is normal. White count is normal CBC. CT abdomen shows marked hydronephrosis of the right kidney with UPJ obstruction. 2 kidney stones are seen better approximately 6 mm in size that are nonobstructing in the renal pelvis. Obstruction is likely due to ureteral stricture. Discussed patient with Dr. Duenas-given normal white count and kidney function and no signs of infection or UA, she recommends patient can be treated outpatient and follow-up with urology. Patient given Toradol and Decadron and pain is well controlled. Will discharge home with Flomax. Patient to follow-up with urology first thing Friday morning. He continues to deny any decreased urination/urinary flow. Discussed in great detail signs and symptoms that should prompt immediate return to the emergency department in detail with patient who verbalizes un derstanding. Patient also instructed to follow-up with GI regarding incidental cholelithiasis noted on CT. Ultrasound was negative for cholecystitis Critical care attestation.: If time is entered above; I have spent that time in minutes in the direct care of this critically ill patient, excluding procedure time. ED Disposition Clinical Impression: UPJ obstruction, acquired, Right flank pain, Cholelithiases Disposition: TO HOME OR SELFCARE Is pt being admited?: No Condition: Stable Instructions: Cholelithiasis, [id number], Flank Pain, Adult Prescriptions: Tamsulosin [Flomax] 0.4 mg PO QDAY 5 Days #5 cap Naproxen 500 mg PO BID PRN #14 tablet PRN Reason: Pain, Moderate (4-6) Acetaminophen/Codeine [Tylenol /Codeine # 3 tab] 1 tab PO Q8H PRN #8 tab PRN Reason: Pain , Severe (7-10) Referrals: [facility] [Provider Group] - 3-5 Days RONALD BELLA MD [Staff Physician] - 09/11/20
[2020-09-08] MEDS ORDERED: cefTRIAXone/NS 1 GM/50 ML 1 GM/50 ML BAG IV ONE (19:04)
[2020-09-08 19:10] LABS: Bacteria,Urine 2+ /HPF (Negative); Bilirubin,Urine NEG (Negative); Blood,Urine NEG (Negative); Color,Urine Straw (Yellow); Hyaline Casts,Urine 1 /LPF; Mucus,Urine FEW /HPF; Protein,Urine <15 mg/dL mg/dL (Negative); Urobilinogen,Urine < 2.0 mg/dL (<2.0)
--- NOTE | 2020-09-08 19:53 | Ultrasound Report ---
ULTRASOUND ABDOMEN, LIMITED (RIGHT UPPER QUADRANT) INDICATION: Right upper quadrant pain. COMPARISON: CT of the abdomen and pelvis, 09/08/2020 FINDINGS: Pancreas: Visualized portion shows no significant abnormality. Liver: Visualized portions of the liver appear normal. Gallbladder: There is a single 2.3 cm calcified stone in the gallbladder. There is no evidence of wal l thickening or pericholecystic fluid. Bile ducts: Common Bile Duct is normal in caliber measuring 4 mm. Free fluid: None. Additional Findings: None. IMPRESSION: 1. Single calcified stone within the gallbladder. No sonographic evidence to suggest cholecystitis. Signer Name: Columba Atkins MD Signed: 09/08/2020 7:49 PM Workstation Name: [id number]
[2020-09-08] MEDS ORDERED: KETOROLAC 30 MG/1 ML INJ IV ONE (19:59)
[2020-09-08] MEDS ORDERED: dexAMETHasone 20 MG/5 ML VIAL IV ONE (20:10)
[2020-09-08] MEDS ORDERED: oxyCODONE /ACETAMINOPHEN 5-325MG TAB PO ONE (20:10)
[2020-09-08 21:16] VITALS: BP 148/70
== END 2020-09-08 20:45 | disposition home or self-care (01) ==
LOC: ED 13:48
DX: K80.20 Calculus of gallbladder without cholecystitis without obstruction (principal); N13.5 Crossing vessel and stricture of ureter without hydronephrosis; R10.9 Unspecified abdominal pain; M19.91 Primary osteoarthritis, unspecified site; Z98.890 Other specified postprocedural states; Z79.2 Long term (current) use of antibiotics; Z79.899 Other long term (current) drug therapy
CPT/HCPCS: 36415; 74176; 76705; 80053; 81001; 83690; 85025; 96374; 96375; 99284; J1100; J1885; J2270; J2405

== ENCOUNTER 2020-11-26 08:40 | Emergency (ER) | payer MEDICARE ==
[2020-11-26 09:20] VITALS: BP 154/74
--- NOTE | 2020-11-26 10:35 | Emergency Department Report ---
ED General Adult HPI - General Chief complaint: Extremity Injury, Lower Stated complaint: LEFT FOOT PAIN Time Seen by Provider: 11/26/20 10:13 Source: patient Mode of arrival: Ambulatory Limitations: No Limitations - History of Present Illness Initial comments: 70-year-old male patient with history of gout presents to the emergency department with complaints of nontraumatic painful erythematous swelling to his left great toe starting 3 days ago. Symptoms were preceded by consumption of red meat. Patient states current symptoms are consistent with prior gout exacerbations. He is not currently on urate lowering therapy. Denies fever, chills, paresthesias, numbness, weakness. Denies all other complaints at this time. - Related Data Previous Rx's Medication Instructions Recorded Last Taken Type Amoxicillin [Trimox CAP] 500 mg PO BID #20 capsule 03/10/18 Unknown Rx Benzonatate [Tessalon Perles] 100 mg PO Q8HR PRN #20 capsule 03/10/18 Unknown Rx Fluticasone [Flonase] 1 spray NS QDAY #1 bottle 03/10/18 Unknown Rx predniSONE [Deltasone] 50 mg PO QDAY #5 tab 03/10/18 Unknown Rx Colchicine 0.6 mg PO Q3H #3 capsule 03/15/19 Unknown Rx HYDROcodone/APAP 5-325 [[place] 1 each PO Q6HR PRN #10 tablet 03/15/19 Unknown Rx 5/325] Prednisone [predniSONE 10 mg 10 mg PO .TAPER #1 tab.ds.pk 03/15/19 Unknown Rx (6-Day Pack, 21 Tabs)] Ciprofloxacin HCl [Ciprofloxacin 500 mg PO Q12HR 5 Days #10 tab 01/04/20 Unknown Rx TAB] Acetaminophen/Codeine [Tylenol 1 tab PO Q8H PRN #8 tab 09/08/20 Unknown Rx /Codeine # 3 tab] Naproxen 500 mg PO BID PRN #14 tablet 09/08/20 Unknown Rx Tamsulosin [Flomax] 0.4 mg PO QDAY 5 Days #5 cap 09/08/20 Unknown Rx Colchicine [Colcrys] 0.6 mg PO BID 3 Days tab 11/26/20 Unknown Rx Indomethacin [Indocin] 25 mg PO Q8H 5 Days capsule 11/26/20 Unknown Rx Allergies Allergy/AdvReac Type Severity Reaction Status Date / Time No Known Allergies Allergy Unverified 05/24/13 13:53 ED Review of Systems ROS: Stated complaint: LEFT FOOT PAIN Other details as noted in HPI Other: GENERAL: Negative for fever. CARDIOVASCULAR: Negative for chest pain. PULMONARY: Negative for shortness of breath. GASTROINTESTINAL: Negative for abdominal pain. MUSCULOSKELETAL: Positive for painful swelling. NEUROLOGICAL: Negative for headache. INTEGUMENTARY: Positive for erythema. 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 went in and patched it up." - Social History Smoking Status: Never Smoker Substance Use Type: Alcohol - Medications Home Medications: Home Medications Medication Instructions Recorded Confirmed Last Taken Type Amoxicillin [Trimox CAP] 500 mg PO BID #20 capsule 03/10/18 Unknown Rx Benzonatate [Tessalon Perles] 100 mg PO Q8HR PRN #20 capsule 03/10/18 Unknown Rx Fluticasone [Flonase] 1 spray NS QDAY #1 bottle 03/10/18 Unknown Rx predniSONE [Deltasone] 50 mg PO QDAY #5 tab 03/10/18 Unknown Rx Colchicine 0.6 mg PO Q3H #3 capsule 03/15/19 Unknown Rx HYDROcodone/APAP 5-325 [[place] 1 each PO Q6HR PRN #10 tablet 03/15/19 Unknown Rx 5/325] Prednisone [predniSONE 10 mg 10 mg PO .TAPER #1 tab.ds.pk 03/15/19 Unknown Rx (6-Day Pack, 21 Tabs)] Ciprofloxacin HCl [Ciprofloxacin 500 mg PO Q12HR 5 Days #10 tab 01/04/20 Unknown Rx TAB] Acetaminophen/Codeine [Tylenol 1 tab PO Q8H PRN #8 tab 09/08/20 Unknown Rx /Codeine # 3 tab] Naproxen 500 mg PO BID PRN #14 tablet 09/08/20 Unknown Rx Tamsulosin [Flomax] 0.4 mg PO QDAY 5 Days #5 cap 09/08/20 Unknown Rx Colchicine [Colcrys] 0.6 mg PO BID 3 Days tab 11/26/20 Unknown Rx Indomethacin [Indocin] 25 mg PO Q8H 5 Days capsule 11/26/20 Unknown Rx ED Physical Exam - General Limitations: No Limitations - Other Other exam information: General: Awake, appropriately interactive, no acute distress. Neck: Supple. Full range of motion intact. Cardiovascular: Normal peripheral perfusion. Pulmonary: No respiratory distress. Patient is speaking normally without use of accessory muscles. Skin: See musculoskeletal. Neurological: No facial asymmetry. Speech is clear. Follows commands. Patient is alert and oriented. Musculoskeletal: Tenderness to light palpation throughout the dorsal aspect of the left great toe with overlying erythema and minimal soft tissue swelling. Distal neurovascular and motor/sensory function intact. Psych: Cooperative. Appropriate mood and affect. ED Course Vital Signs 11/26/20 09:14 Temperature 98.3 F Pulse Rate 66 Respiratory 20 Rate Blood Pressure 154/74 O2 Sat by Pulse 98 Oximetry ED Medical Decision Making - Medical Decision Making Differential diagnosis including but not limited to: gout, pseudogout, cellulitis, septic arthritis, osteoarthritis, rheumatoid arthritis Patient presents to the emergency department with signs/symptoms consistent with prior gout flareups. He is afebrile, hemodynamically stable, neurovascularly intact. Pain is appropriately proportional to exam findings. No clinical indication for further diagnostic work-up on an emergent basis at this time. Patient will be discharged home with appropriate symptomatic treatment and referred to primary care provider for close outpatient follow-up. Patient expressed understanding and is agreeable to plan of care. Lifestyle modifications discussed. Strict return precautions provided. History, exam, diagnostic testing, and current condition do not suggest worrisome pathology to warrant further testing, continued ED treatment, admission, or surgical evaluation at this point. Given the low probability of a significant medical illness, it would be more likely to result in harm than benefit to perform further testing at this stage. Discussed findings, presumptive diagnosis, need for follow-up and specific signs/symptoms that should prompt immediate return to the emergency department. Instructions were explained in detail to the patient in addition to giving written discharge information. Patient expressed understanding and was given the opportunity to ask questions, all of which were satisfactorily answered prior to discharge home. Critical care attestation.: If time is entered above; I have spent that time in minutes in the direct care of this critically ill patient, excluding procedure time. ED Disposition Clinical Impression: Gout Qualifiers: Gout site: foot Gout etiology: unspecified cause Chronicity: unspecified Laterality: left Qualified Code(s): M10.9 - Gout, unspecified Disposition: TO HOME OR SELFCARE Is pt being admited?: No Does the pt Need Aspirin: No Condition: Stable Instructions: Low-Purine Eating Plan Additional Instructions: Take Colchicine and Indomethacin with food as directed. Keep left foot elevated as often as possible to reduce swelling. Apply cool compresses to the affected area as needed to reduce swelling. Follow-up with primary care provider this week. Call tomorrow to schedule an appointment. See referral information below. Return to the emergency department immediately for new or worsening symptoms. Prescriptions: Colchicine [Colcrys] 0.6 mg PO BID 3 Days tab Indomethacin [Indocin] 25 mg PO Q8H 5 Days capsule Referrals: RORY KAUFFMAN MD [Staff Physician] - 3-5 Days [facility] [place]Note 3[facility] [Outside] - 3-5 Days [facility] [Outside] - 3-5 Days [facility] [Outside] - 3-5 Days [facility] [Provider Group] - 3-5 Days Time of Disposition: 10:35
[2020-11-26] MEDS ORDERED: INDOMETHACIN 25 MG CAP PO ONE (11:00)
[2020-11-26] MEDS ORDERED: COLCHICINE 0.6 MG TAB PO ONE (11:00)
== END 2020-11-26 11:04 | disposition home or self-care (01) ==
LOC: ED 08:40
DX: M10.9 Gout, unspecified (principal); Z79.899 Other long term (current) drug therapy; Z98.890 Other specified postprocedural states
CPT/HCPCS: 99281